=== PATIENT | male | born 1960 | race Caucasian/White ===

== ENCOUNTER → 2017-01-11 | Outpatient (CLI) | payer MEDICARE, BC ==
[~2017-01-11] MED LIST: ASPI-630 PO; CHOL100013 PO; OMEP20CA9 PO; TAMS0.4C2 PO; TAMS0.4C97 PO; VIT1TABL2 PO; ZOLP10TA4 PO; ZOLP5TAB PO; [UNRECOGNIZED DRUG - CODE] PO
--- NOTE | 2017-01-11 15:10 | RAD ---
Pelvis with left hip, 2 views, 01/11/2017: History: Hip and pelvic pain, old injury No fracture or dislocation is identified. The hip joint spaces are well maintained with only minimal marginal spurring. The periarticular soft tissues are unremarkable. IMPRESSION: No acute pelvic or left hip abnormality is detected.
== END | disposition home or self-care (01) ==
LOC: DXRADRC 10:28
PROVIDERS: ATTEND Orthopaedic Surgery Sports Medicine
DX: M25.552 Pain in left hip (principal); R10.2 Pelvic and perineal pain; S79.912D Unspecified injury of left hip, subsequent encounter; X58.XXXD Exposure to other specified factors, subsequent encounter
CPT/HCPCS: 73501

== ENCOUNTER → 2018-03-20 | Outpatient (CLI) | payer MEDICARE, BC ==
[~2018-03-20] MED LIST changes: +BUPIVACAINE MPF 0.5% 30 ML VIAL. ONE; +LIDOCAINE 1% PF 30 ML VIAL. ONE
== END | disposition home or self-care (01) ==
LOC: SURG 11:34
PROVIDERS: ATTEND Anesthesiology Pain Medicine
DX: M47.816 Spondylosis without myelopathy or radiculopathy, lumbar region (principal); M19.90 Unspecified osteoarthritis, unspecified site; K21.9 Gastro-esophageal reflux disease without esophagitis; K44.9 Diaphragmatic hernia without obstruction or gangrene; G47.33 Obstructive sleep apnea (adult) (pediatric); Z79.899 Other long term (current) drug therapy; Z79.82 Long term (current) use of aspirin
CPT/HCPCS: 64493; 64494; J2001; J3490

== ENCOUNTER 2020-12-10 13:43 | Emergency (ER) | payer MEDICARE ==
[~2020-12-10] VITALS: Ht 175.3 cm; Wt 10.9 kg
[2020-12-10] MEDS ORDERED: ONDANSETRON PF 4 MG/2 ML VIAL. ONE (15:21)
[2020-12-10] MEDS ORDERED: ONDANSETRON PF 4 MG/2 ML VIAL. IVP ONE (15:30)
[2020-12-10] MEDS ORDERED: IOHEXOL 300 MG/ML 75 ML VIAL. IV ONE (15:30)
[2020-12-10 15:53] LABS: BASO # 0.1 x10^3/uL (0.0-0.2); BASO % 1 % (0-3); EOS # 0.1 x10^3/uL (0.0-0.7); EOS % 2 % (0-3); HEMOGLOBIN 17.7 g/dL (13.0-17.5); LYMPH # 2.3 x10^3/uL (1.0-4.8); LYMPH % 36 % (24-48); MEAN CORPUSCULAR HEMOGLOBIN 32 pg (25-35); MEAN CORPUSCULAR HGB CONC 34 g/dL (31-37); MEAN CORPUSCULAR VOLUME 93 fL (79-100); MONO # 0.5 x10^3/uL (0.0-1.1); MONO % 7 % (0-9); NEUT # 3.5 x10^3uL (1.8-7.7); NEUT % 54 % (31-73); PLATELET COUNT 142 x10^3/uL (140-400); RED BLOOD COUNT 5.58 x10^6/uL (4.30-5.70); RED CELL DISTRIBUTION WIDTH 13.7 % (11.5-14.5); WHITE BLOOD COUNT 6.4 x10^3/uL (4.0-11.0)
[2020-12-10 16:00] LABS: CALCIUM 9.1 mg/dL (8.5-10.1); CREATININE 1.4 mg/dL (0.7-1.3); GFR 51.7; POTASSIUM 3.9 mmol/L (3.5-5.1)
[2020-12-10 16:05] LABS: ALBUMIN 4.4 g/dL (3.4-5.0); ALBUMIN/GLOBULIN RATIO 1.2 (1.0-1.7); TOTAL BILIRUBIN 0.9 mg/dL (0.2-1.0); TOTAL PROTEIN 8.1 g/dL (6.4-8.2)
--- NOTE | 2020-12-10 16:07 | RAD ---
Exam: CT of abdomen and pelvis with contrast INDICATION: Abdominal pain TECHNIQUE: Sequential axial images through the abdomen and pelvis obtained following the administrati on of 75 mL of Isovue-370 IV contrast. Sagittal and coronal reformatted images were reconstructed fro m the axial data and reviewed. Exposure: One or more of the following in the visualized dose reduction techniques were utilized for this examination: 1. Automated exposure control 2. Adjustment of the MA and/or KV according to patient size 3. Use of iterative of reconstructive technique Comparisons: 01/30/2014 FINDINGS: Heart size is normal. No pericardial effusion. Strandy opacities the dependent portion lungs likely r epresenting atelectasis.. Mild diffuse hepatic steatosis. Spleen, pancreas, adrenals are unremarkable. Gallbladder surgically a bsent. No perinephric inflammation or hydronephrosis. No renal or ureteral calculi are identified. Bladder is decompressed not well evaluated. Prostate is not enlarged. Large and small bowel are unremarkable. Postoperative changes noted at the cecum. No free intra-abdom inal air or fluid. No obstruction. Abdominal aorta has a normal course and caliber. Abdominal vasculature is patent. No enlarged intra-abdominal lymph nodes are identified. No suspicious osseous lesions or acute fractures. IMPRESSION: 1. No acute process identified in the abdomen or pelvis. 2. Mild diffuse hepatic steatosis. Electronically signed by: Brandi Meadows MD (12/10/2020 4:05 PM) [facility]
--- NOTE | 2020-12-10 16:32 | PHYS DOC ---
Past History Additional Past Medical Histor: CHRONIC BACK PAIN Past Surgical History: Appendectomy, Cholecystectomy, Other Additional Past Surgical Histo: BACK SURGERY 2000 Alcohol Use: None General Adult EDM: Chief Complaint: ABDOMINAL PAIN HPI: HPI: Patient is a 60-year-old male who presents to the ER today for left upper and lower abdominal pain with constipation and dark stools that appeared black but then transition to brown. Patient reports that he has been constipated and has been taking stool softeners but stopped taking them once he had normal bowel movements. Patient is also reporting that he feels like his abdomen is distended. He does have history of an abdominal hernia. He reports that his a bdomen hurts after he straining to have a bowel movement. Patient rates his pain 2 out of 10. He denies any nausea, vomiting, fevers, urinary symptoms. Review of Systems: Review of Systems: 14 body systems of the review of systems have been reviewed. See HPI for pertinent positive and negative responses, otherwise all other systems are negative, nonpertinent or noncontributory Current Medications: Current Meds: Current Medications Medications (Trade) Dose Ordered Sig/Louise Start Time Stop Time Status Last Admin Dose Admin Fentanyl Citrate (Fentanyl 2ml Vial) 100 mcg STK-MED ONCE 12/10/20 15:21 12/10/20 15:22 DC Iohexol (Omnipaque 300 Mg/ml) 75 ml 1X ONCE 12/10/20 15:30 12/10/20 15:31 DC 12/10/20 15:38 75 ML Ondansetron HCl (Zofran) 4 mg STK-MED ONCE 12/10/20 15:21 12/10/20 15:21 DC Allergies: Allergies: Allergies Coded Allergies Type Severity Reaction Last Updated Verified Penicillins Allergy Mild 12/10/20 Yes Vxbygwm-Zxu-Emp Reductase Inhibitor Allergy Unknown 12/10/20 Yes Physical Exam: PE: Constitutional: Well developed, well nourished, no acute distress, non-toxic appearance. [] HENT: Normocephalic, atraumatic, bilateral external ears normal, oropharynx moist, no oral exudates, nose normal. [] Eyes: PERRL, conjunctiva normal, no discharge. [] Neck: Normal range of motion, no stridor Cardiovascular:Heart rate regular rhythm, no murmur [] Lungs & Thorax: Bilateral breath sounds clear to auscultation [] Abdomen: Bowel sounds normal, soft, mild abdominal distention, mild tenderness with palpation to left upper and lower quadrant, no rebound tenderness, no masses, no pulsatile masses. [] Skin: Warm, dry, no erythema, no rash. [] Back: Normal range of motion Extremities: No tenderness, no cyanosis, no clubbing, ROM intact, no edema. [] Neurologic: Alert and oriented X 3, normal motor function, normal sensory function, no focal deficits noted. [] Psychologic: Affect normal, judgement normal, mood normal. [] Current Patient Data: Labs: Laboratory Tests Test 12/10/20 15:30 White Blood Count 6.4 x10^3/uL (4.0-11.0) Red Blood Count 5.58 x10^6/uL (4.30-5.70) Hemoglobin 17.7 g/dL (13.0-17.5) H Hematocrit 52.0 % (39.0-53.0) Mean Corpuscular Volume 93 fL (79-100) Mean Corpuscular Hemoglobin 32 pg (25-35) Mean Corpuscular Hemoglobin Concent 34 g/dL (31-37) Red Cell Distribution Width 13.7 % (11.5-14.5) Platelet Count 142 x10^3/uL (140-400) Neutrophils (%) (Auto) 54 % (31-73) Lymphocytes (%) (Auto) 36 % (24-48) Monocytes (%) (Auto) 7 % (0-9) Eosinophils (%) (Auto) 2 % (0-3) Basophils (%) (Auto) 1 % (0-3) Neutrophils # (Auto) 3.5 x10^3uL (1.8-7.7) Lymphocytes # (Auto) 2.3 x10^3/uL (1.0-4.8) Monocytes # (Auto) 0.5 x10^3/uL (0.0-1.1) Eosinophils # (Auto) 0.1 x10^3/uL (0.0-0.7) Basophils # (Auto) 0.1 x10^3/uL (0.0-0.2) Sodium Level 142 mmol/L (136-145) Potassium Level 3.9 mmol/L (3.5-5.1) Chloride Level 104 mmol/L (98-107) Carbon Dioxide Level 28 mmol/L (21-32) Anion Gap 10 (6-14) Blood Urea Nitrogen 15 mg/dL (8-26) Creatinine 1.4 mg/dL (0.7-1.3) H Estimated GFR (Cockcroft-Gault) 51.7 BUN/Creatinine Ratio 11 (6-20) Glucose Level 91 mg/dL (70-99) Calcium Level 9.1 mg/dL (8.5-10.1) Total Bilirubin 0.9 mg/dL (0.2-1.0) Aspartate Amino Transferase (AST) 40 U/L (15-37) H Alanine Aminotransferase (ALT) 72 U/L (16-63) H Alkaline Phosphatase 71 U/L (46-116) Total Protein 8.1 g/dL (6.4-8.2) Albumin 4.4 g/dL (3.4-5.0) Albumin/Globulin Ratio 1.2 (1.0-1.7) Lipase 253 U/L (73-393) Vital Signs: Vital Signs Date Time Temp Pulse Resp B/P (MAP) Pulse Ox O2 Delivery O2 Flow Rate FiO2 12/10/20 15:31 18 98 Room Air 12/10/20 15:28 74 138/98 (111) 12/10/20 14:01 97.6 EKG: EKG: [] Radiology/Procedures: Radiology/Procedures: PROCEDURE: CT ABD PELV W/ IV CONTRST ONLY Exam: CT of abdomen and pelvis with contrast INDICATION: Abdominal pain TECHNIQUE: Sequential axial images through the abdomen and pelvis obtained following the administration of 75 mL of Isovue-370 IV contrast. Sagittal and coronal reformatted images were reconstructed from the axial data and reviewed. Exposure: One or more of the following in the visualized dose reduction techniques were utilized for this examination: 1. Automated exposure control 2. Adjustment of the MA and/or KV according to patient size 3. Use of iterative of reconstructive technique Comparisons: 01/30/2014 FINDINGS: Heart size is normal. No pericardial effusion. Strandy opacities the dependent portion lungs likely representing atelectasis.. Mild diffuse hepatic steatosis. Spleen, pancreas, adrenals are unremarkable. Gallbladder surgically absent. No perinephric inflammation or hydronephrosis. No renal or ureteral calculi are identified. Bladder is decompressed not well evaluated. Prostate is not enlarged. Large and small bowel are unremarkable. Postoperative changes noted at the cecum. No free intra-abdominal air or fluid. No obstruction. Abdominal aorta has a normal course and caliber. Abdominal vasculature is patent. No enlarged intra-abdominal lymph nodes are identified. No suspicious osseous lesions or acute fractures. IMPRESSION: 1. No acute process identified in the abdomen or pelvis. 2. Mild diffuse hepatic steatosis. Electronically signed by: Brandi Cortes MD (12/10/2020 4:05 PM) [facility] DICTATED AND SIGNED BY: BRANDI CORTES MD DATE: 12/10/20 1556 CC: SERENA FEREMAN APRN; LUCAS VALDES MD ~MTH0 0 Heart Score: C/O Chest Pain: No Risk Factors: Risk Factors: DM, Current or recent (<one month) smoker, HTN, HLP, family history of CAD, obesity. Risk Scores: Score 0 - 3: 2.5% MACE over next 6 weeks - Discharge Home Score 4 - 6: 20.3% MACE over next 6 weeks - Admit for Clinical Observation Score 7 - 10: 72.7% MACE over next 6 weeks - Early Invasive Strategies Course & Med Decision Making: Course & Med Decision Making Pertinent Labs and Imaging studies reviewed. (See chart for details) Patient is a 6-year-old male being seen in the ER today for left upper and lower abdominal pain with constipation. Lab work in the ER is unremarkable. CT scan of abdomen was unremarkable. Patient advised to do clear liquid diet for 24 hours followed by bland diet for the next 24 hours. Patient advised to use MiraLAX if he continues to have constipation. I discussed with patient all findings and diagnostic testing as well as the need to follow-up with PCP for further evaluation and treatment or return to the ER if any new or worsening symptoms. Strict return precautions were also discussed at length. Patient voiced understanding and agreement with the plan. Patient is hemodynamically stable at the time of disposition. Dragon Disclaimer: Dragon Disclaimer: This electronic medical record was generated, in whole or in part, using a voice recognition dictation system. Departure Departure: Impression: Primary Impression: Abdominal pain Qualified Codes: R10.32 - Left lower quadrant pain Additional Impression: Constipation Qualified Codes: K59.00 - Constipation, unspecified Disposition: 01 HOME / SELF CARE / HOMELESS Condition: GOOD Referrals: LUCAS VALDES MD (PCP) Patient Instructions: Abdominal Pain (Nonspecific), Constipation, Adult Additional Instructions: You were seen in the ER today for abdominal pain and constipation. Your physical exam was reassuring. Your work-up in the ER was unremarkable. Please follow a clear liquid diet for the remainder of today. If you can tolerate you can switch to a bland diet tomorrow. This can consist of bananas, rice, applesauce, toast. If you continue to have constipation you can take MiraLAX. Please follow-up with your primary care provider tomorrow regarding your ER visit today. If your symptoms worsen or you develop uncontrollable nausea, vomiting, fevers, blood in your stools, increased pain return to the ER immediately. EMERGENCY DEPARTMENT GENERAL DISCHARGE INSTRUCTIONS Thank you for coming to [facility] (ED) today and trusting us with you care. We trust that you had a positivie experience in our Emergency Department. If you wish to speak to the department management, you may call the director at [phone]. YOUR FOLLOW UP INSTRUCTIONS ARE FOLLOWS: 1. Do you have a private Doctor? If you do not have a private doctor, please ask for a resource list of physicians or clinics that may be able to assist you with follow up care. 2. The Emergency Physician has interpreted your x-rays. The X-Ray specialist will also review them. If there is a change in the findings, you will be notified in 48 hours when at all possible. 3. A lab test or culture has been done, your results will be reviewed and you will be notified if you need a change in treatment. ADDITIONAL INSTRUCTIONS AND INFORMATION: 1. Your care today has been supervised by a physician who is specially trained in emergency care. Many problems require more than one evaluation for a complete diagnosis and treatment. We recommend that you schedule your follow up appointment as recommended to ensure complete treatment of you illness or injury. If you are unable to obtain follow up care and continue to have a problem, or if your condition worsens, we recommend that you return to the ED. 2. We are not able to safely determine your condition over the phone nor are we able to give sound medical advice over the phone. For these safety reasons, if you call for medical advice we will ask you to come to the ED for further evaluation. 3. If you have any questions regarding these discharge instructions please call the ED at [phone]. SAFETY INFORMATION: In the interest of safety, wellness, and injury prevention; we encourage you to wear your sealbelt, if you smoke; quite smoking, and we encourage family to use a p rotective helmet for bicycling and other sporting events that present an increased risk for head injury. IF YOUR SYMPTOMS WORSEN OR NEW SYMPTOMS DEVELOP, OR YOU HAVE CONCERNS ABOUT YOUR CONDITION; OR IF YOUR CONDITION WORSENS WHILE YOU ARE WAITING FOR YOUR FOLLOW UP APPOINTMENT; EITHER CONTACT YOUR PRIMARY CARE DOCTOR, THE PHYSICIAN WHOSE NAME AND NUMBER YOU WERE GIVEN, OR RETURN TO THE ED IMMEDIATELY. SERENA FREEMAN [employer] Dec 10, 2020 16:32
[2020-12-10 17:08] VITALS: BP 144/87
== END 2020-12-10 17:08 | disposition home or self-care (01) ==
LOC: ER 13:43
DX: K59.00 Constipation, unspecified (principal); Z88.0 Allergy status to penicillin; Z90.49 Acquired absence of other specified parts of digestive tract
CPT/HCPCS: 36415; 74177; 80053; 83690; 85025; 96374; 96375; 99284; J2405; J3010; Q9967

== ENCOUNTER → 2020-12-10 | Outpatient (CLI) | payer MEDICARE ==
[~2020-12-10] MED LIST changes: -BUPIVACAINE MPF 0.5% 30 ML VIAL. ONE; -LIDOCAINE 1% PF 30 ML VIAL. ONE; +OMEP20CA16 PO; -OMEP20CA9 PO
--- NOTE | 2020-12-10 09:13 | RAD ---
INDICATION: Reason: ABD PAIN. HX OF ABD TRAUMA 11 YEARS AGO. / Spl. Instructions: / History: COMPARISON: January 2014 IMPRESSION: Abdomen: 2 views obtained. Surgical clips at the right upper quadrant. Mild degenerative changes the spine with mild scoliotic curvature. Air scattered throughout the large and small bowel in a nonspeci fic but not grossly obstructive pattern. Electronically signed by: Ismael Morrell MD (12/10/2020 9:11 AM) [id number]
== END ==
LOC: RAD 08:42
PROVIDERS: ATTEND Specialist
DX: R10.9 Unspecified abdominal pain (principal)
CPT/HCPCS: 74018

== ENCOUNTER → 2021-10-10 | Outpatient (CLI) | payer MEDICARE ==
--- NOTE | 2021-10-10 16:59 | RAD ---
XR CHEST 2V History: Reason: ACUTE UPPER RESPIRATORY INFECTION / Spl. Instructions: / History: Comparison: None. Findings: Mild bibasilar ill-defined opacities, left greater than right. No pleural effusion. No pneumothorax. Normal heart size. Impression: 1. Mild bibasilar ill-defined opacities, may represent atelectasis. If persistent clinical concern, recommend follow-up. Electronically signed by: Kale Ayala DO (10/10/2021 4:56 PM) [id number]
== END ==
LOC: RAD 14:18
PROVIDERS: ATTEND Physician Assistant
DX: J06.9 Acute upper respiratory infection, unspecified (principal)
CPT/HCPCS: 71046